=== PATIENT | female | born 1985 | race Caucasian/White ===

== ENCOUNTER 2017-03-14 11:20 | Emergency (ER) | payer MEDICAID ==
[2010-03-02 22:19] VITALS: BMI 26.6
== END 2017-03-14 12:13 | disposition home or self-care (01) ==
LOC: D.ER 11:20
DX: J11.1 Influenza due to unidentified influenza virus with other respiratory manifestations (principal); R50.9 Fever, unspecified; R53.83 Other fatigue; J02.9 Acute pharyngitis, unspecified

== ENCOUNTER 2017-11-23 08:23 | Emergency (ER) | payer MEDICAID ==
[~2017-11-23] VITALS: Ht 157.5 cm; Wt 61.4 kg
[2017-11-23 08:30] VITALS: Ht 157.5 cm; Wt 61.4 kg
[2017-11-23] MEDS ORDERED: ACETAMINOPHEN500 M1 PO (10:59)
[2017-11-23] MEDS ORDERED: CYCLOBENZAPRINE10 MG PO (10:59)
[2017-11-23] MEDS ORDERED: IBUPROFEN800 MG PO (10:59)
[2017-11-23 11:08] VITALS: BP 127/67
== END 2017-11-23 11:18 | disposition home or self-care (01) ==
LOC: D.ER 08:23
DX: S50.12XA Contusion of left forearm, initial encounter (principal); S20.212A Contusion of left front wall of thorax, initial encounter; W01.0XXA Fall on same level from slipping, tripping and stumbling without subsequent striking against object, initial encounter; Y93.01 Activity, walking, marching and hiking; Y92.89 Other specified places as the place of occurrence of the external cause; S50.812A Abrasion of left forearm, initial encounter; F17.200 Nicotine dependence, unspecified, uncomplicated

== ENCOUNTER 2018-01-31 17:44 | Emergency (ER) | payer MEDICAID ==
[~2018-01-31] VITALS: Ht 157.5 cm; Wt 63.6 kg
[~2018-01-31 17:44] MED LIST: ACETAMINOPHEN500 M1 PO; CYCLOBENZAPRINE10 MG PO; IBUPROFEN800 MG PO
[2018-01-31 18:09] VITALS: Ht 157.5 cm; Wt 63.6 kg
[2018-01-31] MEDS ORDERED: BUTALB-APAP-CA1 EACH PO (18:29)
[2018-01-31 19:40] VITALS: BP 131/88
== END 2018-01-31 19:40 | disposition home or self-care (01) ==
LOC: D.ER 17:44
DX: G43.909 Migraine, unspecified, not intractable, without status migrainosus (principal); G40.909 Epilepsy, unspecified, not intractable, without status epilepticus; F17.200 Nicotine dependence, unspecified, uncomplicated

== ENCOUNTER 2018-05-09 09:32 | Emergency (ER) | payer MEDICAID ==
[~2018-05-09] VITALS: Ht 157.5 cm; Wt 63.6 kg
[~2018-05-09 09:32] MED LIST changes: +BUTALB-APAP-CA1 EACH PO
[2018-05-09 09:36] VITALS: BP 145/95; Ht 157.5 cm; Wt 63.6 kg
[2018-05-09] MEDS ORDERED: BROMFED-DM COU473 ML PO (10:52)
== END 2018-05-09 11:00 | disposition home or self-care (01) ==
LOC: D.ER 09:32
DX: J11.1 Influenza due to unidentified influenza virus with other respiratory manifestations (principal); R09.89 Other specified symptoms and signs involving the circulatory and respiratory systems; R05 Cough; F17.200 Nicotine dependence, unspecified, uncomplicated

== ENCOUNTER 2019-03-09 20:41 | Inpatient (IN) | payer MEDICAID ==
[~2019-03-09] VITALS: Ht 157.5 cm; Wt 74.6 kg
[~2019-03-09 20:41] MED LIST changes: +BROMFED-DM COU473 ML PO
--- NOTE | 2019-03-09 21:20 | NUR ---
PT CHANGED INTO BLUE PAPER SCRUBS AND BELONGINGS SECURED AT NURSING STATION. UA SENT TO LAB
[2019-03-09 21:48] LABS: APPEARANCE CLEAR (CLEAR); BILIRUBIN NEGATIVE (NEGATIVE); COLOR YELLOW (YELLOW); GLUCOSE NEGATIVE (NEGATIVE); KETONE SMALL mg/dL (NEGATIVE); NITRITE NEGATIVE (NEGATIVE); PROTEIN NEGATIVE (NEGATIVE); UDS - AMPHET NEGATIVE QUAL (NEGATIVE); UDS - BARB POSITIVE QUAL (NEGATIVE); UDS - BENZO POSITIVE QUAL (NEGATIVE); UDS - COCAINE NEGATIVE QUAL (NEGATIVE); UDS - OPIATE NEGATIVE QUAL (NEGATIVE); UDS - PCP NEGATIVE QUAL (NEGATIVE); UDS - THC NEGATIVE QUAL (NEGATIVE); UROBILINOGEN NORMAL (NORMAL)
[2019-03-09 21:57] LABS: BASOPHILS 0.1 % (0-2); EOSINOPHILS 0.1 % (0-7); HEMATOCRIT 40.7 % (36.0-48.0); HEMOGLOBIN 13.8 g/dL (12-16); IMMATURE GRANULOCYTES 0.4 % (0-5); LYMPHOCYTES 30.9 % (15-50); MCH 35.2 pg (26.0-34.0); MCHC 33.9 g/dL (31.0-37.0); MCV 103.8 fL (80.0-100.0); MEAN PLATELET VOLUME 9.1 fL (7.4-10.4); MONOCYTES 10.1 % (2-11); NEUTROPHILS 58.4 % (40-80); RBC 3.92 10x6/uL (4.00-5.40); RDW 12.4 % (11.5-14.5); WBC 7.1 10x3/uL (4.8-10.8)
[2019-03-09 22:00] LABS: PLATELET COUNT 265 10x3/uL (130-400)
[2019-03-09 22:06] LABS: HCG SERUM NEGATIVE (NEGATIVE)
[2019-03-09 22:11] LABS: CALC OSMOLALITY 280 mosm/kg (275-300); CALCIUM 8.8 mg/dL (8.5-10.1); CHLORIDE - SERUM 103 mmol/L (98-107); CREATININE - SERUM 0.8 mg/dL (0.6-1.3); GLUCOSE 105 mg/dL (74-106); SODIUM 140 mmol/L (136-145); UREA NITROGEN 17 mg/dL (7-18); eGFR NON AFRICAN AMERICAN 89 mL/min (90-120)
[2019-03-09 22:23] LABS: ALBUMIN 3.7 g/dL (3.4-5.0); ALKALINE PHOSPHATASE 72 U/L (46-116); ALT (SGPT) 30 U/L (10-68); BILIRUBIN - TOTAL 0.33 mg/dL (0.2-1.3); PROTEIN - SERUM 7.4 g/dL (6.4-8.2)
[2019-03-09 22:25] LABS: ACETAMINOPHEN 133.7 ug/mL (10.0-30.0)
--- NOTE | 2019-03-09 22:26 | NUR ---
DR ZAYAS NOTIFIED AND REVIEWED PT'S BEHAVIOR AND ASSESSMENT. PT IS A HIGH RISK. SITTER ORDERED. SITTER AT BEDSIDE. CHARGE NURSE AND ATTENDING NOTIFIED. RESOURCES GIVEN AND REVIEWED WITH PATIENT AND SHE VERBALIZES UNDERSTANDING. PATIENT REFUSES TO CONTRACT FOR SAFETY AND SAFETY PLAN. STATES "IF GIVEN THE CHANCE I WOULD PROBABLY TRY TO KILL MYSELF AGAIN."
--- NOTE | 2019-03-09 22:35 | NUR ---
[facility] OF ACETOMINOPHEN POISON CONTROL CALLED. PT NEEDS TO BE STARTED ON ANTIDOTE
--- NOTE | 2019-03-09 22:36 | NUR ---
PT ADMITS TO TAKING TYLENOL OD PT STATES " THAT WAS THIS MORNING" PT STATES THAT SHE DOESNT KNOW WHAT TIME. PT THINKS MAYBE AROUND 2PM BUT CANT BE SURE. PT UNKNOWN AMOUNT TAKEN.
[2019-03-09 23:00] VITALS: BP 123/71
[2019-03-09 23:00] LABS: ALBUMIN 3.7 g/dL (3.4-5.0); BILIRUBIN - DIRECT 0.15 mg/dL (0.00-0.30); BILIRUBIN - INDIRECT 0.14 mg/dL (0.00-1.00); BILIRUBIN - TOTAL 0.29 mg/dL (0.2-1.3); PROTEIN - SERUM 7.5 g/dL (6.4-8.2)
[2019-03-10] VITALS (25 sets, daily range): BP systolic 92–137; BP diastolic 51–105; Ht 157.5 cm; Wt 74.6 kg
--- NOTE | 2019-03-10 01:00 | NUR ---
PT RECIEVED FROM ER VIA STRETCHER, AMBULATED TO BED, A/0X4, LUNGS CLEAR, RIGHT AC PIV INTACT WITH MUCOMYST GTT INFUSING @ 200 CC/HR, PT COOPERATIVE, ON SUICIDE PRECAUTIONS, VITALS STABLE, NURSE REMAINS IN ROOM
--- NOTE | 2019-03-10 03:01 | NUR ---
PT LYING ON LEFT SIDE WITH EYES CLOSED, VITALS STABLE, SITTER PRESENT
[2019-03-10 04:14] LABS: BASOPHILS 0 % (0-2); EOSINOPHILS 0.4 % (0-7); HEMOGLOBIN 12.9 g/dL (12-16); IMMATURE GRANULOCYTES 0.4 % (0-5); LYMPHOCYTES 43.8 % (15-50); MCHC 33.9 g/dL (31.0-37.0); MONOCYTES 9.4 % (2-11); PLATELET COUNT 225 10x3/uL (130-400); RBC 3.69 10x6/uL (4.00-5.40); RDW 12.4 % (11.5-14.5)
[2019-03-10 04:34] LABS: ALBUMIN 2.8 g/dL (3.4-5.0); ALKALINE PHOSPHATASE 52 U/L (46-116); ALT (SGPT) 23 U/L (10-68); BILIRUBIN - TOTAL 0.43 mg/dL (0.2-1.3); CALC OSMOLALITY 281 mosm/kg (275-300); CALCIUM 8.1 mg/dL (8.5-10.1); CARBON DIOXIDE 22.2 mmol/L (21.0-32.0); CHLORIDE - SERUM 104 mmol/L (98-107); CREATININE - SERUM 0.7 mg/dL (0.6-1.3); GLUCOSE 107 mg/dL (74-106); MAGNESIUM - SERUM 2.2 mg/dL (1.8-2.4); PHOSPHOROUS 3.5 mg/dL (2.5-4.9); POTASSIUM - SERUM 3.6 mmol/L (3.5-5.1); PROTEIN - SERUM 6.1 g/dL (6.4-8.2); SODIUM 141 mmol/L (136-145); UREA NITROGEN 16 mg/dL (7-18); VALPROIC ACID (DEPAKOTE) 71.4 ug/mL (50.0-100.0); eGFR NON AFRICAN AMERICAN > 90 mL/min (90-120)
--- NOTE | 2019-03-10 05:10 | NUR ---
PT UP TO BSC TO VOID, AMBULATES WITHOUT DIFFICULTY, VITALS STABLE, NO C/O
--- NOTE | 2019-03-10 07:00 | NUR ---
RECEIVED BEDSIDE REPORT ON PATIENT AND ASSUMED CARE. PATIENT CRYING UNCONTROLLABLY, STATES EVERYTHING REMINDS HER OF HER CHILDREN. VSS. IV 20 GA TO RIGHT AC INFUSING NS WITH ACETYLESTEINE AT 62.5 ML/HR. BBS - WITH EXPIRATORY WHEEZES NOTED. SPO2 - 99% ON RA. CM - ST RATE OF 110. HEAD TO TOE ASSESSMENT COMPLETED.
--- NOTE | 2019-03-10 07:44 | NUR ---
PATIENT GIVEN BREAKFAST TRAY AND POURED SUGAR OVER EVERYTHING. CRYING UNCONTROLLABLEY. STATED WILL GET HER A NEW TRAY SENT UP. DIETARY CONTACTED AND REPLACEMENT TRAY ORDERED. SITTER AT BEDSIDE.
--- NOTE | 2019-03-10 08:20 | NUR ---
PATIENT GIVEN REPLACEMENT BREAKFAST TRAY. VSS. SITTER AT BEDSIDE.
--- NOTE | 2019-03-10 09:06 | NUR ---
PATIENT RESTING QUIETLY, EYES CLOSED. VSS. SITTER AT BEDSIDE.
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
--- NOTE | 2019-03-10 10:58 | NUR ---
REASSESSMENT COMPLETED. PATIENT CALM, WATCHING TV. VSS. STATES HEADACHE IS THE SAME, 10/10, STATES SEES A LOT OF LITTLE SPOTS IN HER VISION. ALERT AND ORIENTED X 4. IV INFUSING W/O DIFFICULTY TO RIGHT AC 20 GA. TEMP 98.4 SITTER AT BEDSIDE.
--- NOTE | 2019-03-10 11:02 | NUR ---
PATIENT TO CT VIA WHEELCHAIR AND RN SITTER.
--- NOTE | 2019-03-10 11:09 | NUR ---
PATIENT BACK FROM CT.
--- NOTE | 2019-03-10 11:30 | NUR ---
PATIENT WITH ATTENTION SEEKING BEHAVIOR, PULLING MONITORING DEVICES OFF, CRYING. VSS.SITTER AT BEDSIDE.
--- NOTE | 2019-03-10 12:31 | NUR ---
PATIENT GIVEN LUNCH TRAY, WATCHING TV AND EATING LUNCH. SITTER AT BEDSIDE. VSS.
--- NOTE | 2019-03-10 12:51 | NUR ---
PATIENT ATE APPROXIMATELY 80% OF LUNCH, RESTING QUIETLY WITH EYES CLOSED. VSS.
--- NOTE | 2019-03-10 13:17 | NUR ---
PATIENT RESTING QUIETLY WITH EYES CLOSED. VSS. SITTER AT [facility].
--- NOTE | 2019-03-10 13:36 | NUR ---
DR. ZAYAS AT ROOM UPDATED AND EXAMINES PATIENT.
--- NOTE | 2019-03-10 14:48 | NUR ---
REASSESSMENT COMPLETED. VSS. PATIENT RESTING QUIETLY AROUSED BY VOICE. IV INFUSING W/O DIFFICULTY. SITTER AT BEDSIDE.
--- NOTE | 2019-03-10 14:55 | NUR ---
PATIENTS CALLED ADVISED COULD NOT GIVE ANY INFORMATION OUT OVER THE PHONE AND THAT VISITATION WOULD NOT BE ALLOWED.
--- NOTE | 2019-03-10 15:10 | NUR ---
PATIENTS MOTHER CALLED, ADVISED COULD NOT GIVE INFORMATION OUT OVER THE PHONE.
--- NOTE | 2019-03-10 16:23 | NUR ---
PATIENT WATCHING TV, VSS. GIVEN DINNER TRAY, NO NEEDS AT THIS TIME. SITTER AT BEDSIDE.
--- NOTE | 2019-03-10 16:53 | NUR ---
PATIENT ATE APPROXIMATELY 90% OF DINNER TRAY. RESTING QUIETLY WITH EYES CLOSED. VSS. SITTER AT BEDSIDE.
--- NOTE | 2019-03-10 17:34 | NUR ---
PATIENT SLEEPING, VSS. SITTER AT BEDSIDE.
--- NOTE | 2019-03-10 18:04 | NUR ---
PATIENT RESTING QUIETLY, WATCHING TV. NO NEEDS AT THIS TIME. SITTER AT BEDSIDE.
--- NOTE | 2019-03-10 19:18 | NUR ---
PT ALERT, IN BED WATCHING TV, AGITATED AT TIMES, RIGHT PIV INTACT WITH ACETYLCYSTEINE GTT INFUSING, NO C/O @ THIS TIME, VITALS STABLE
--- NOTE | 2019-03-10 21:00 | NUR ---
PT RESTING QUIETLY IN BED, NO C/O @ THIS TIME, WILL CONT TO MONITOR
--- NOTE | 2019-03-10 23:03 | NUR ---
PT SLEEPING ON LEFT SIDE, RIGHT PIV SL, VITALS STABLE
[2019-03-11] VITALS (10 sets, daily range): BP systolic 103–133; BP diastolic 67–91
--- NOTE | 2019-03-11 01:00 | NUR ---
PT ASLEEP WITH NO CHANGES, VITALS STABLE
--- NOTE | 2019-03-11 03:10 | NUR ---
LAB IN ROOM TO DRAW BLOOD, PT COOPERATIVE, WILL CONT TO MONITOR
[2019-03-11 03:53] LABS: BASOPHILS 0 % (0-2); EOSINOPHILS 1.5 % (0-7); HEMATOCRIT 35.5 % (36.0-48.0); HEMOGLOBIN 12.3 g/dL (12-16); IMMATURE GRANULOCYTES 0.4 % (0-5); LYMPHOCYTES 45.7 % (15-50); MCH 35.7 pg (26.0-34.0); MCHC 34.6 g/dL (31.0-37.0); MCV 102.9 fL (80.0-100.0); MEAN PLATELET VOLUME 9.2 fL (7.4-10.4); MONOCYTES 10.4 % (2-11); PLATELET COUNT 201 10x3/uL (130-400); RBC 3.45 10x6/uL (4.00-5.40); RDW 12.2 % (11.5-14.5); WBC 4.5 10x3/uL (4.8-10.8)
[2019-03-11 04:15] LABS: ALBUMIN 2.8 g/dL (3.4-5.0); ALKALINE PHOSPHATASE 58 U/L (46-116); ALT (SGPT) 26 U/L (10-68); BILIRUBIN - TOTAL 0.22 mg/dL (0.2-1.3); CALC OSMOLALITY 284 mosm/kg (275-300); CALCIUM 8.3 mg/dL (8.5-10.1); CARBON DIOXIDE 22.4 mmol/L (21.0-32.0); CHLORIDE - SERUM 108 mmol/L (98-107); CREATININE - SERUM 0.7 mg/dL (0.6-1.3); GLUCOSE 117 mg/dL (74-106); PHOSPHOROUS 3.9 mg/dL (2.5-4.9); POTASSIUM - SERUM 3.8 mmol/L (3.5-5.1); PROTEIN - SERUM 5.9 g/dL (6.4-8.2); SODIUM 142 mmol/L (136-145); UREA NITROGEN 15 mg/dL (7-18); eGFR NON AFRICAN AMERICAN > 90 mL/min (90-120)
[2019-03-11 04:18] LABS: PROTIME 12.7 SECONDS (11.6-15.0)
--- NOTE | 2019-03-11 05:18 | NUR ---
PT SLEEPING ON BACK, AROUSES EASILY, NO CHANGE NOTED FROM INITIAL ASSESSMENT
--- NOTE | 2019-03-11 07:04 | NUR ---
REPORT RECEIVED. PT ON 1:1. RECEIVED IN REPORT THAT PT IS CURRENTLY AGITATED. TOOK LEADS OFF. WILL NOT LET ME REPLACE AT THIS TIME. ATIVAN GIVEN PER PRN ORDERS. PSYCH NURSE IN TO DO REASSESSMENT. PT STATES SHE IS STILL WANTING TO COMMIT SUICIDE. WILL CONTINUE TO MONITOR.
--- NOTE | 2019-03-11 09:02 | NUR ---
PT RESTING QUIETLY. TOOK AM MEDS WITH NO ISSUES. STATES THAT SHE IS HURTING AND ASKS IF DOCTOR WILL LET HER TAKE ANYTHING FOR PAIN. ASSURED HER THAT I WOULD ASK THE DOCTOR. NO OTHER NEEDS AT THIS TIME. WILL CONTINUE TO MONITOR.
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
--- NOTE | 2019-03-11 13:04 | NUR ---
BEHAVIORAL TECH IN HELPING PT WITH BATH AND CHANGE OF PAPER SCRUBS.
--- NOTE | 2019-03-11 14:09 | NUR ---
RECIEVED PHONE CALL FROM [facility] STATING THE ACCEPTING PHYSICIAN IS DR HILARIO, AND THAT PT WILL GO TO ROOM 3182. THE NUMBER TO CALL REPORT IS [phone] AND [phone].
--- NOTE | 2019-03-11 14:33 | NUR ---
REPORT CALLED TO KEANU PETTY RN, AT [facility]. [facility] TO GET PT AT 1500. PT SIGNED TRANSFER PAPERWORK. MANAGER OF [employer]IR[employer] SALES NOTIFIED.
--- NOTE | 2019-03-11 15:34 | NUR ---
PT DISCHARGED. LEFT VIA [employer] WITH ALL PERSONAL ITEMS INCLUDING NECKLACE. D/C PAPERWORK GIVEN.
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
== END 2019-03-11 15:36 | DRG 918 ==
LOC: D.ER 20:41 → D.ICU 23:49
PROVIDERS: Family Medicine; ADMIT Internal Medicine Nephrology; ATTEND Internal Medicine Nephrology
DX: T39.1X2A Poisoning by 4-Aminophenol derivatives, intentional self-harm, initial encounter (principal); F17.203 Nicotine dependence unspecified, with withdrawal; D75.89 Other specified diseases of blood and blood-forming organs; I10 Essential (primary) hypertension; F31.9 Bipolar disorder, unspecified

== ENCOUNTER 2019-03-30 13:17 | Emergency (ER) | payer MEDICAID ==
[~2019-03-30] VITALS: Ht 157.5 cm; Wt 76.4 kg
[2019-03-30 13:21] VITALS: Ht 157.5 cm; Wt 76.4 kg
[2019-03-30] MEDS ORDERED: REMERON30 MG PO (13:24)
[2019-03-30] MEDS ORDERED: HALDOL5 MG PO (13:24)
[2019-03-30 15:26] LABS: APPEARANCE TURBID (CLEAR); COLOR YELLOW (YELLOW)
[2019-03-30 15:27] LABS: BILIRUBIN NEGATIVE (NEGATIVE); GLUCOSE NEGATIVE (NEGATIVE); KETONE NEGATIVE (NEGATIVE); NITRITE POSITIVE (NEGATIVE); PROTEIN NEGATIVE (NEGATIVE); UROBILINOGEN NORMAL (NORMAL)
[2019-03-30 15:31] LABS: BACTERIA MANY /hpf (NEGATIVE); RED CELLS - URINE 0-5 /hpf (0-5)
[2019-03-30 15:34] LABS: UDS - AMPHET NEGATIVE QUAL (NEGATIVE); UDS - BARB NEGATIVE QUAL (NEGATIVE); UDS - BENZO POSITIVE QUAL (NEGATIVE); UDS - COCAINE NEGATIVE QUAL (NEGATIVE); UDS - OPIATE NEGATIVE QUAL (NEGATIVE); UDS - PCP NEGATIVE QUAL (NEGATIVE); UDS - THC NEGATIVE QUAL (NEGATIVE)
[2019-03-30 16:23] LABS: BASOPHILS 0.2 % (0-2); EOSINOPHILS 0.8 % (0-7); HEMATOCRIT 35.6 % (36.0-48.0); IMMATURE GRANULOCYTES 0.3 % (0-5); LYMPHOCYTES 24.8 % (15-50); MCH 34.6 pg (26.0-34.0); MCHC 33.7 g/dL (31.0-37.0); MCV 102.6 fL (80.0-100.0); MEAN PLATELET VOLUME 8.5 fL (7.4-10.4); MONOCYTES 6.7 % (2-11); NEUTROPHILS 67.2 % (40-80); PLATELET COUNT 233 10x3/uL (130-400); RBC 3.47 10x6/uL (4.00-5.40); RDW 12.7 % (11.5-14.5); WBC 6.6 10x3/uL (4.8-10.8)
[2019-03-30 16:33] LABS: CALC OSMOLALITY 277 mosm/kg (275-300); CALCIUM 8.2 mg/dL (8.5-10.1); CARBON DIOXIDE 21.3 mmol/L (21.0-32.0); CHLORIDE - SERUM 106 mmol/L (98-107); CREATININE - SERUM 0.5 mg/dL (0.6-1.3); GLUCOSE 87 mg/dL (74-106); SODIUM 141 mmol/L (136-145); UREA NITROGEN 7 mg/dL (7-18); eGFR NON AFRICAN AMERICAN > 90 mL/min (90-120)
[2019-03-30 16:39] LABS: ALBUMIN 3.6 g/dL (3.4-5.0); ALKALINE PHOSPHATASE 77 U/L (46-116); ALT (SGPT) 112 U/L (10-68); BILIRUBIN - TOTAL 0.54 mg/dL (0.2-1.3); PROTEIN - SERUM 6.7 g/dL (6.4-8.2)
[2019-03-30 20:32] LABS: CKMB 0.4 U/L (0.0-3.6); CREATINE KINASE 64 UL (21-215); TROPONIN-I < 0.017 ng/mL (0.000-0.060)
[2019-03-30] MEDS ORDERED: KLONOPIN0.5 MG PO (21:23)
[2019-03-30] MEDS ORDERED: MACROBID100 MG PO (21:33)
[2019-03-30 21:45] VITALS: BP 118/85
== END 2019-03-30 21:45 | disposition home or self-care (01) ==
LOC: D.ER 13:17
PROVIDERS: Emergency Medicine
DX: M25.60 Stiffness of unspecified joint, not elsewhere classified (principal); I10 Essential (primary) hypertension; N39.0 Urinary tract infection, site not specified; F41.9 Anxiety disorder, unspecified; G24.9 Dystonia, unspecified

== ENCOUNTER 2019-03-31 13:23 | Emergency (ER) | payer MEDICAID ==
[~2019-03-31] VITALS: Ht 157.5 cm; Wt 76.4 kg
[~2019-03-31 13:23] MED LIST changes: +HALDOL5 MG PO; +KLONOPIN0.5 MG PO; +MACROBID100 MG PO; +REMERON30 MG PO
[2019-03-31 13:25] VITALS: Ht 157.5 cm; Wt 76.4 kg
[2019-03-31 14:58] LABS: BASOPHILS 0.1 % (0-2); EOSINOPHILS 0.7 % (0-7); HEMATOCRIT 36.3 % (36.0-48.0); HEMOGLOBIN 12.4 g/dL (12-16); IMMATURE GRANULOCYTES 0.2 % (0-5); LYMPHOCYTES 16.8 % (15-50); MCH 34.5 pg (26.0-34.0); MCHC 34.2 g/dL (31.0-37.0); MCV 101.1 fL (80.0-100.0); MEAN PLATELET VOLUME 8.6 fL (7.4-10.4); MONOCYTES 5.5 % (2-11); NEUTROPHILS 76.7 % (40-80); PLATELET COUNT 249 10x3/uL (130-400); RBC 3.59 10x6/uL (4.00-5.40); WBC 8.2 10x3/uL (4.8-10.8)
[2019-03-31 15:04] LABS: CALC OSMOLALITY 278 mosm/kg (275-300); CALCIUM 8.3 mg/dL (8.5-10.1); CARBON DIOXIDE 24.3 mmol/L (21.0-32.0); CHLORIDE - SERUM 106 mmol/L (98-107); CREATININE - SERUM 0.6 mg/dL (0.6-1.3); GLUCOSE 97 mg/dL (74-106); POTASSIUM - SERUM 3.9 mmol/L (3.5-5.1); SODIUM 141 mmol/L (136-145); UREA NITROGEN 7 mg/dL (7-18); eGFR NON AFRICAN AMERICAN > 90 mL/min (90-120)
[2019-03-31 15:11] LABS: ALBUMIN 3.7 g/dL (3.4-5.0); ALKALINE PHOSPHATASE 80 U/L (46-116); ALT (SGPT) 101 U/L (10-68)
[2019-03-31 15:46] LABS: APPEARANCE CLEAR (CLEAR); BILIRUBIN NEGATIVE (NEGATIVE); COLOR YELLOW (YELLOW); GLUCOSE NEGATIVE (NEGATIVE); KETONE NEGATIVE (NEGATIVE); NITRITE NEGATIVE (NEGATIVE); PROTEIN NEGATIVE (NEGATIVE); SPECIFIC GRAVITY 1.005 (1.005-1.020); UROBILINOGEN NORMAL (NORMAL)
[2019-03-31 15:56] LABS: UDS - AMPHET NEGATIVE QUAL (NEGATIVE); UDS - BARB NEGATIVE QUAL (NEGATIVE); UDS - BENZO NEGATIVE QUAL (NEGATIVE); UDS - COCAINE NEGATIVE QUAL (NEGATIVE); UDS - OPIATE NEGATIVE QUAL (NEGATIVE); UDS - PCP NEGATIVE QUAL (NEGATIVE); UDS - THC NEGATIVE QUAL (NEGATIVE)
[2019-03-31 16:28] LABS: THYROID STIMULATING HORMONE 0.56 uIU/mL (0.36-3.74)
[2019-03-31 16:52] LABS: HCG URINE NEGATIVE (NEGATIVE)
--- NOTE | 2019-03-31 22:37 | NUR ---
DR ZAYAS NOTIFIED AND REVIEWED PT'S BEHAVIOR AND ASSESSMENT. PT IS A HIGH RISK. SITTER ORDERED AND AT BEDSIDE. SAFETY PLAN INITIATED. RESOURCES GIVEN AND SHE VERBALIZES UNDERSTANDING.
[2019-04-01 06:30] VITALS: BP 125/78
== END 2019-04-01 19:38 ==
LOC: D.ER 13:23
PROVIDERS: Family Medicine
DX: R45.851 Suicidal ideations (principal); F41.8 Other specified anxiety disorders; I10 Essential (primary) hypertension

== ENCOUNTER 2019-12-26 10:22 | Inpatient (IN) | payer MEDICAID ==
[2019-12-26] VITALS (7 sets, daily range): BP systolic 98–117; BP diastolic 53–79; Ht 157.5 cm; Wt 77.3 kg
[~2019-12-26] VITALS: Ht 157.5 cm; Wt 77.3 kg
[~2019-12-26 10:22] MED LIST changes: +COGENTIN; +DEPAKOTE250 MG PO; +METOPROLOL; +OMEPRAZOLE20 M1 PO; +PROTONIX40 MG PO; +ZOFRAN ODT4 MG/UDTAB PO
[2019-12-26] MEDS ORDERED: COREG6.25 MG PO (10:39)
[2019-12-26] MEDS ORDERED: [UNRECOGNIZED DRUG - REMARK] (10:40)
[2019-12-26 11:40] LABS: BASOPHILS 0.1 % (0-2); EOSINOPHILS 0.9 % (0-7); HEMATOCRIT 38.5 % (36.0-48.0); IMMATURE GRANULOCYTES 0.2 % (0-5); LYMPHOCYTES 18.1 % (15-50); MCH 34.5 pg (26.0-34.0); MCHC 33.8 g/dL (31.0-37.0); MCV 102.1 fL (80.0-100.0); MEAN PLATELET VOLUME 9.3 fL (7.4-10.4); NEUTROPHILS 73.7 % (40-80); RBC 3.77 10x6/uL (4.00-5.40); RDW 12.9 % (11.5-14.5); WBC 9.4 10x3/uL (4.8-10.8)
[2019-12-26 11:42] LABS: PLATELET COUNT 206 10x3/uL (130-400)
[2019-12-26 11:43] LABS: CALC OSMOLALITY 269 mosm/kg (275-300); CALCIUM 8.5 mg/dL (8.5-10.1); CARBON DIOXIDE 25.6 mmol/L (21.0-32.0); CHLORIDE - SERUM 103 mmol/L (98-107); CREATININE - SERUM 0.6 mg/dL (0.6-1.3); GLUCOSE 101 mg/dL (74-106); SODIUM 136 mmol/L (136-145); UREA NITROGEN 8 mg/dL (7-18); eGFR NON AFRICAN AMERICAN > 90 mL/min (90-120)
[2019-12-26 11:45] LABS: HCG URINE NEGATIVE (NEGATIVE); NITRITE NEGATIVE (NEGATIVE)
[2019-12-26 11:46] LABS: BILIRUBIN NEGATIVE (NEGATIVE); KETONE NEGATIVE (NEGATIVE); UROBILINOGEN 4 mg/dL (< 2)
[2019-12-26 11:47] LABS: BACTERIA FEW HPF (NONE SEEN); EPITHELIAL CELLS 0-5 /hpf (0-5); WHITE CELLS - URINE OCC HPF (0-4)
[2019-12-26 11:54] LABS: ALBUMIN 3.3 g/dL (3.4-5.0); ALKALINE PHOSPHATASE 60 U/L (30-120); ALT (SGPT) 56 U/L (10-68); AMYLASE - SERUM 25 U/L (25-115); BILIRUBIN - TOTAL 0.64 mg/dL (0.2-1.3); LIPASE 131 U/L (73-393); PROTEIN - SERUM 6.9 g/dL (6.4-8.2)
[2019-12-26 11:58] LABS: TROPONIN-I < 0.017 ng/mL (0.000-0.060)
[2019-12-26 11:59] LABS: POTASSIUM - SERUM 3.8 mmol/L (3.5-5.1)
--- NOTE | 2019-12-26 15:26 | NUR ---
DR OCONNOR AND ANESTHESIOLOGIST AT BS. PROCEDURE EXPL. PT VERB UNDER. ALL CONSENT SIGNED/WITNESSED
--- NOTE | 2019-12-26 15:54 | NUR ---
OPR CREW HERE, TO OR CONDITION STABLE
[2019-12-26 17:19] LABS: CALCIUM 8.5 mg/dL (8.5-10.1); MAGNESIUM - SERUM 1.8 mg/dL (1.8-2.4); PHOSPHOROUS 2.7 mg/dL (2.5-4.9)
--- NOTE | 2019-12-26 22:00 | NUR ---
REC'D AT [facility]. OF SHIFT WALKING ROUNDS IN BED WATCHING TV. ABDOMEN DISTENDED BUT SOFT AND PALABLE STATES NOT PASSING ANY FLATUS YET. DENIES ANY DISCOMFORT AT PRESENT TIME.DRSG TO THREE LAP SITES CDI NO DRAINAGE OBSERVED.WILL CONTINUE TO MONITOR FOR ANY POST-OP CHGES AND FOLLOW CURRENT PLAN OF CARE.
[2019-12-27 03:47] VITALS: BP 116/77
[2019-12-27 05:40] LABS: BASOPHILS 0.3 % (0-2); EOSINOPHILS 1.5 % (0-7); HEMATOCRIT 31.4 % (36.0-48.0); IMMATURE GRANULOCYTES 0.1 % (0-5); LYMPHOCYTES 27.8 % (15-50); MCHC 32.5 g/dL (31.0-37.0); MEAN PLATELET VOLUME 9.4 fL (7.4-10.4); MONOCYTES 8.5 % (2-11); NEUTROPHILS 61.8 % (40-80); PLATELET COUNT 176 10x3/uL (130-400); RDW 13.1 % (11.5-14.5)
[2019-12-27 05:43] LABS: APTT 27.2 SECONDS (22.8-39.4); INR 1.02 (0.85-1.17); PROTIME 13.3 SECONDS (11.6-15.0)
[2019-12-27 06:00] LABS: HEMOGLOBIN 10.2 g/dL (12-16); MCV 104.7 fL (80.0-100.0); WBC 6.7 10x3/uL (4.8-10.8)
[2019-12-27 06:12] LABS: ALBUMIN 2.6 g/dL (3.4-5.0); ALKALINE PHOSPHATASE 50 U/L (30-120); BILIRUBIN - TOTAL 0.73 mg/dL (0.2-1.3); CALC OSMOLALITY 278 mosm/kg (275-300); CALCIUM 7.4 mg/dL (8.5-10.1); CARBON DIOXIDE 21.8 mmol/L (21.0-32.0); CHLORIDE - SERUM 106 mmol/L (98-107); CREATININE - SERUM 0.7 mg/dL (0.6-1.3); GLUCOSE 86 mg/dL (74-106); PROTEIN - SERUM 5.6 g/dL (6.4-8.2); SODIUM 141 mmol/L (136-145); UREA NITROGEN 9 mg/dL (7-18); eGFR NON AFRICAN AMERICAN > 90 mL/min (90-120)
[2019-12-27 06:14] LABS: ALT (SGPT) 39 U/L (10-68); POTASSIUM - SERUM 3.1 mmol/L (3.5-5.1)
[2019-12-27 08:00] VITALS: BP 124/75
--- NOTE | 2019-12-27 10:42 | NUR ---
PT SITTING UP IN BED STATES SHE IS VOIDING WELL, DISCOMFORT IN ABDOMEN, STATES SHE IS READY TO GO HOME. INFORMED PT THAT ROUNDS WILL BE MADE SHORTLY. NO OTHER NEEDS AT THIS TIME. CONTINUE WITH PLAN OF CARE
[2019-12-27] MEDS ORDERED: NICODERM CQ1 EAC3 TRANSDERM (11:09)
[2019-12-27] MEDS ORDERED: LEVOFLOXACIN500 MG PO (11:47)
[2019-12-27] MEDS ORDERED: TYLENOL W/CODEI1 TAB PO (11:47)
== END 2019-12-27 13:42 | disposition home or self-care (01) | DRG 343 ==
LOC: D.ER 10:22 → D.EDHOLD 13:25 → D.MS 13:25
PROVIDERS: Family Medicine; Surgery; ADMIT Family Medicine; ATTEND Family Medicine
PROC: 0DTJ4ZZ Resection of Appendix, Percutaneous Endoscopic Approach (ICD-10-PCS; principal; 2019-12-26 12:45)
DX: K35.80 Unspecified acute appendicitis (principal); E66.9 Obesity, unspecified; I10 Essential (primary) hypertension; Z72.0 Tobacco use; E87.6 Hypokalemia; E83.42 Hypomagnesemia